=== PATIENT | male | born 1975 | race Caucasian/White ===

== ENCOUNTER 2018-07-12 22:49 | Emergency (ER) | payer MEDICAID, OTHER ==
[~2018-07-12] VITALS: Ht 172.7 cm; Wt 83.9 kg
[~2018-07-12 22:49] MED LIST: CITA40TA22 PO; KLO.5 PO; METH-34 PO; QUET300T2 PO; TRAZ-126 PO; WARF4TAB2 PO
[2018-07-12 22:59] VITALS: BP_SYST 126
[2018-07-12] MEDS ORDERED: IPRATROPIUM/ALBUTEROL SULFATE 3 ML AMPUL.NEB (DUONEB) INH ONE (23:30)
[2018-07-13 00:34] VITALS: BP_SYST 126
== END 2018-07-13 00:34 | disposition home or self-care (01) ==
LOC: SED 22:49
DX: J45.901 Unspecified asthma with (acute) exacerbation (principal); F17.210 Nicotine dependence, cigarettes, uncomplicated; Z71.6 Tobacco abuse counseling; I25.2 Old myocardial infarction; I10 Essential (primary) hypertension; Z86.73 Personal history of transient ischemic attack (TIA), and cerebral infarction without residual deficits; Z90.89 Acquired absence of other organs; Z87.442 Personal history of urinary calculi; Z88.8 Allergy status to other drugs, medicaments and biological substances; Z79.899 Other long term (current) drug therapy
CPT/HCPCS: 71045; 94640; 99283; J7620

== ENCOUNTER 2018-07-13 14:08 | Emergency (ER) | payer OTHER ==
[~2018-07-13] VITALS: Ht 172.7 cm; Wt 83.9 kg
[2018-07-13 14:20] VITALS: BP_SYST 143
[2018-07-13] MEDS ORDERED: IPRATROPIUM/ALBUTEROL SULFATE 3 ML AMPUL.NEB (DUONEB) INH ONE (15:15)
== END 2018-07-13 15:18 | disposition left against medical advice (07) ==
LOC: SED 14:08
DX: J42 Unspecified chronic bronchitis (principal); G89.29 Other chronic pain; R31.9 Hematuria, unspecified; F12.10 Cannabis abuse, uncomplicated; I25.2 Old myocardial infarction; J45.909 Unspecified asthma, uncomplicated; F17.200 Nicotine dependence, unspecified, uncomplicated; Z86.718 Personal history of other venous thrombosis and embolism; Z86.73 Personal history of transient ischemic attack (TIA), and cerebral infarction without residual deficits; Z87.442 Personal history of urinary calculi; Z88.6 Allergy status to analgesic agent; Z88.8 Allergy status to other drugs, medicaments and biological substances; Z79.899 Other long term (current) drug therapy; Z53.20 Procedure and treatment not carried out because of patient's decision for unspecified reasons
CPT/HCPCS: 99281